=== PATIENT | female | born 1980 | race Caucasian/White ===

== ENCOUNTER 2018-04-30 11:32 | Emergency (ER) | payer OTHER ==
[2018-04-30] MEDS ORDERED: NS 1,000 ML IV ONE (12:30)
--- NOTE | 2018-04-30 12:32 | EDPHY ---
H & P Stated Complaint: 7 wks spotting cramping Source: Patient Exam Limitations: No limitations - Personal History LMP (Females 10-55): Current Tetanus Diphtheria and Acellular Pertussis (TDAP): Unsure - Medical/Surgical History Hx Asthma: No Hx Chronic Respiratory Disease: No Hx Diabetes: No Hx Cardiac Disease: No Hx Renal Disease: No Hx Cirrhosis: No Hx Alcoholism: No Hx HIV/AIDS: No Hx Splenectomy or Spleen Trauma: No Other PMH: denies - Social History Smoking Status: Never smoked Time Seen by Provider: 04/30/18 12:31 HPI/ROS: HPI: This is a 37-year-old female who presents with Chief Complaint: 7 wks spotting cramping Location:pelvic Quality: Spotting, cramping Duration: 1 hr prior to arrival Signs and Symptoms: no fever, no nausea, no vomiting, no hematemesis, no blood in stool, no abdominal bloating, no diarrhea, no back pain, no urinary symptoms , no vaginal discharge, no indigestion, no chest pain, no shortness of breath Timing: Acute Severity: Mild Context: Last menstrual period March 13. [facility]. Taking vitamin. G1. Reports that she was at work, use the bathroom to urinate, and when she wiped she noticed bright red blood on her tissue paper. Stands on feet for work long periods of time. No recent sexual intercourse. Denies vaginal discharge, fever, back pain, urinary symptoms. Denies alcohol, drug, tobacco use. Unsure blood type. Patient does complain of lower suprapubic cramping bilaterally. Reports drinking "lots of water." Modifying Factors: None Comment: ROS: A comprehensive 10 system review of systems is otherwise negative aside from elements mentioned in the history of present illness. MEDICAL/SURGICAL/SOCIAL HISTORY: Medical history: Generally healthy. Does not take any regular medications. Surgical history: Denies Social history: Employed. Nonsmoker. Family history noncontributory. CONSTITUTIONAL: Tearful, adult female, awake and alert, no obvious distress HEENT: Atraumatic and normocephalic, PERRL, EOMI. Nares patent; no rhinorrhea; no nasal mucosal edema. Tympanic membranes clear. Oropharynx clear, no exudate and moist pink mucosa. Airway patent. No lymphadenopathy. No meningismus. Cardiovascular: Normal S1/S2, regular rate, regular rhythm, without murmur rub or gallop. PULMONARY/CHEST: Symmetrical and nontender. Clear to auscultation bilaterally. Good air movement. No accessory muscle usage. ABDOMEN: Soft, nondistended, nontender, no rebound, no guarding, no peritoneal signs, no masses or organomegaly. No CVAT. EXTREMITIES: 2/2 pulses, strength 5/5, no deformities, no clubbing, no cyanosis or edema. NEUROLOGICAL: no focal neuro deficits. GCS 15. SKIN: Warm and dry, no erythema. no rash. Good capillary refill. (Amy Mccord) Constitutional: Initial Vital Signs Temperature (C) 37 C 04/30/18 11:42 Heart Rate 83 04/30/18 11:42 Respiratory Rate 18 04/30/18 11:42 Blood Pressure 125/82 H 04/30/18 11:42 O2 Sat (%) 98 04/30/18 11:42 O2 Delivery Mode Room Air Allergies/Adverse Reactions: No Known Allergies Allergy (Unverified 04/30/18 11:41) Home Medications: Medication Instructions Recorded 04/30/18 Medical Decision Making ED Course/Re-evaluation: Vital signs reviewed and stable upon arrival. Blood pressure stable. IV access, laboratory studies, urinalysis, pelvic ultrasound ordered Given 1 L normal saline 1300: Labs reviewed and stable. Blood type A-positive; RhoGAM not indicated Urinalysis shows 2+ blood, trace bacteria, no ketones 1335: Serum HCG 2621 1340: Called by Dr. Del Toro that pelvic ultrasound shows no intrauterine , left ovarian cyst that looks like corpus luteum. Plan is to discharge home for threatened miscarriage with OBGYN follow-up in 3- 5 days with monitoring serial HCG levels and repeat ultrasound Discussed laboratory and ultrasound findings at bedside with the patient and answered questions extensively. This patient was seen under the supervision of my secondary supervising physician. I evaluated care for this patient independently. (Amy Mccord) The patient was evaluated and managed by the physician instructional support assistant. I have reviewed this chart and I agree with the findings and plan of care as documented , as indicated by my signature. I am the secondary supervising physician. ( Su Mosley) Differential Diagnosis: Abdominal pain in a female including but not limited to ovarian cyst, pelvic inflammatory disease, ovarian torsion, urinary tract infection, and appendicitis. (Amy Mccord) - Data Points Laboratory Results: Laboratory Results 04/30/18 12:25 04/30/18 12:25 Medications Given: Discontinued Medications Sodium Chloride (Ns) 1,000 mls @ 0 mls/hr IV ONCE ONE; Wide Open PRN Reason: Protocol Stop: 04/30/18 12:31 Last Admin: 04/30/18 12:38 Dose: 1,000 mls Point of Care Test Results: Chemistry 04/30/18 12:34 POC Sodium 142 mEq/L mEq/L (135-145) POC Potassium 3.5 mEq/L mEq/L (3.3-5.0) POC Chloride 106 mEq/L mEq/L (97-110) POC Total CO2 25 mEq/L mEq/L (22-31) POC BUN 3 mg/dL L mg/dL (7-23) POC Creatinine 0.6 mg/dL mg/dL (0.6-1.0) POC Glucose 94 mg/dL mg/dL (70-100) ISTAT H&H 04/30/18 12:34 POC Hgb 15.0 gm/dL gm/dL (12.6-16.3) POC Hct 44 % % (38-47) Departure - Departure Disposition: Home, Routine, Self-Care Clinical Impression: Threatened miscarriage Condition: Good Instructions: Threatened Miscarriage (ED), Pelvic Rest (ED) Additional Instructions: You are at risk for threatened miscarriage. Rest as much as possible until you are feeling better. Consume a minimum of 8-10 glasses of water or electrolyte fluid replacement drinks that include Gatorade, Powerade, Pedialyte. Observe pelvic rest until cleared by OBGYN. Follow up with OBGYN in 3-5 days for repeat serum HCG level. Today's HCG level was 2621. Referrals: [facility],. [Clinic] - As per Instructions Stand Alone Forms: Work Excuse
[2018-04-30 12:42] LABS: PLATELET COUNT 253 10^3/uL (150-400)
[2018-04-30 13:47] VITALS: BP 104/74
== END 2018-04-30 13:51 | disposition home or self-care (01) ==
DX: O26.851 Spotting complicating pregnancy, first trimester (principal); O20.0 Threatened abortion; O99.281 Endocrine, nutritional and metabolic diseases complicating pregnancy, first trimester; Z3A.01 Less than 8 weeks gestation of pregnancy
CPT/HCPCS: 82435-PO; 82565-PO; 82947-PO; 84132-PO; 84295-PO; 84520-PO; 85014-ER